=== PATIENT | male | born 1955 | race Two or more races ===

== ENCOUNTER 2023-12-26 10:23 | Outpatient (AMB) | payer MEDICAID, SELFPAY ==
--- NOTE | 2023-12-26 10:26 | A.OFFVIS_ITS ---
Intake Vital Signs 12/26/23 10:45 Height 5 ft 7 in Weight 268 lb 8 oz BMI 42.0 BP 120/80 Blood Pressure Location Rt brachial Position Sitting Pulse 82 Pulse Source Pulse Oximeter Pulse Oximetry (%) 97 Oxygen Delivery Method Room Air Intake Visit Reasons: ENP-hx of MAICOL using CPAP having issues - CONF Intake Note: Patient presents for MAICOL. Needs new CPAP prescription. Already has CPAP machine but doesn't know the company name. Allergies No Known Allergies Allergy (Verified 12/26/23 10:34) HPI HPI Comments History of Present Illness Details 68 y/o male patient presents for new in- person visit to manage sleep apnea. certified court/medical interpreter ID# [id number] utilized. Pt reports he was diagnosed with MAICOL about 14-15 years ago, and has been using CPAP since then. He still use his original CPAP and the CPAP does not work well. He sleeps better and has less snoring with using CPAP, and daytime sleepiness has also improved. He had gastric bypass in 2012, initially lost about 100 lb, but he gained back again. Sleep questionnaire: Have you ever been diagnosed with a sleep disorder? Yes, MAICOL about 15 years ago. Have you ever had a sleep study in the past? Yes. Have you ever been treated for a sleep disorder? Yes, with CPAP. Do you take medications for a sleep disorder? Ambien 10 mg. Do you snore? Yes. Do you wake up gasping at night? No, without CPAP. Do you have episodes of apneas? Yes. If yes, are they witnessed? Yes. Do you have episodes of nocturnal chest pain or dyspnea? No. Do you have difficulty initiating sleep? Yes. Do you have difficulty maintaining sleep? Yes. Do you wake up tired? Yes. Do you have headaches upon awakening? No. Do you wake up with dry mouth or throat? No. Do you have GERD? Yes. Do you have nocturia? No. Do you have nocturnal leg cramps? No. Do you have symptoms of restless legs? No. Do you act out your dreams? No. Sleep hygiene questionnaire: What is your usual sleep routine? Usual bedtime is at 10-11 pm; Usual wake up time is at 6 am. Do you take naps? Yes, sometimes. Is your sleep environment cool, dark, and quiet? Yes. Do you exercise? Yes, walking sometimes. Do you take caffeine or other stimulants? Coffee in the morning. Do you use electronics in bed? Yes. 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 Hypersomnolence questionnaire: Do you have daytime tiredness or fatigue? No. Do you easily fall asleep when inactive? No. Have you ever had episodes of sudden weakness? No. Have you ever had episodes of sudden weakness associated with strong emotions? No. PFSH Surgical History (Updated 12/26/23 @ 10:42 by Lynette Flores CMA) History of gastric bypass Family History (Updated 12/26/23 @ 10:43 by Lynette Flores CMA) Mother Cancer Brother Prostate cancer Social History (Updated 12/26/23 @ 10:45 by Lynette Flores CMA) Household Members: Children Housing: Apartment Alcohol intake: current Comment: Occasionally Patient Tobacco Use Status: Never used Tobacco Review of Systems Const All systems reviewed & are unremarkable except as noted in HPI and below Physical Exam Vital Signs: Last Vital Signs Pulse 82 12/26/23 10:45 BP 120/80 12/26/23 10:45 Pulse Ox 97 12/26/23 10:45 Oxygen Delivery Method Room Air 12/26/23 10:45 BMI result Body Mass Index 42.0 Const General: cooperative Nutritional Appearance: obese Orientation/consciousness: patient oriented x3 Neck Neck: Yes full ROM and Yes supple Resp Effort & Inspection: normal respiratory effort and able to speak in complete sentences Neuro General: patient oriented x3 and gait normal Cranial nerves: Yes CN's II-XII intact bilaterally Cognition (Neuro): normal cognition Motor exam (neuro): 5/5 motor strength present throughout Psych Appearance: grossly normal Mental Status: mental status grossly normal Speech and movement: Normal speech and movement present Affect: normal affect Attitude: cooperative Assessment & Plan Assessment & Plan (1) MAICOL on CPAP: Code(s): G47.33 - Obstructive sleep apnea (adult) (pediatric) (2) Obesity, Class III, BMI 40-49.9 (morbid obesity): Code(s): E66.01 - Morbid (severe) obesity due to excess calories Plan Pt is advised to undergo in lab sleep study to assess for sleep apnea. Will f/u with pt after study to discuss results and appropriate treatment options. Pt to call with any worsening concerns or questions. Orders: Orders RT PSG in-lab sleep study 12/26/23 E66.01 - Morbid (severe) obesity due to excess calories, G47.33 - Obstructive sleep apnea (adult) (pediatric), R40.0 - Somnolence Coding Level of Care Code New Pt Level 3 (26097) Diagnoses MAICOL on CPAP G47.33 Obesity, Class III, BMI 40-49.9 (morbid obesity) E66.01
[2023-12-26 10:45] VITALS: BP 120/80; PULSE 82; O2SAT 97; BMI 42.0
== END 2023-12-26 11:22 | disposition home or self-care (01) ==
PROVIDERS: PCP Nurse Practitioner; Visit Provider Nurse Practitioner Family
DX: G47.33 Obstructive sleep apnea (adult) (pediatric) (principal); E66.01 Morbid (severe) obesity due to excess calories
CPT/HCPCS: 99203

== ENCOUNTER → 2023-12-26 10:23 | Outpatient (BNVA) | payer MEDICARE, MEDICAID, SELFPAY | PROVIDERS: PCP Nurse Practitioner; Visit Provider Nurse Practitioner Family | DX: G47.33 Obstructive sleep apnea (adult) (pediatric) (principal); E66.01 Morbid (severe) obesity due to excess calories; Z68.41 Body mass index [BMI] 40.0-44.9, adult | CPT/HCPCS: 99212 ==

== ENCOUNTER → 2024-02-15 20:30 | Outpatient (REF) | payer MEDICARE, MEDICAID, SELFPAY | LOC: HO.SL 20:30 | PROVIDERS: PCP Nurse Practitioner; Visit Provider Nurse Practitioner Family | DX: G47.33 Obstructive sleep apnea (adult) (pediatric) (principal); R40.0 Somnolence; E66.01 Morbid (severe) obesity due to excess calories | CPT/HCPCS: 95810 ==

== ENCOUNTER → 2024-02-15 22:05 | Outpatient (BNV) | payer MEDICARE, MEDICAID, SELFPAY | PROVIDERS: PCP Nurse Practitioner; Visit Provider Psychiatry & Neurology Neurology | DX: G47.33 Obstructive sleep apnea (adult) (pediatric) (principal) | CPT/HCPCS: 95810 ==

== ENCOUNTER 2024-08-30 09:51 | Outpatient (REF) | payer MEDICARE, MEDICAID, SELFPAY ==
[2024-08-30 11:20] LABS: Hematocrit 44.6 % (42.0-52.0); Hemoglobin 15.1 g/dl (14.0-18.0); Mean Corpuscular HGB Conc 33.9 g/dl (31.0-36.0); Mean Corpuscular Hemoglobin 31.1 pg (27.0-33.0); Platelet Count 129 X10*3/uL (160-400); Red Blood Count 4.85 X10*6/uL (4.60-5.80); Red Cell Distribution Width 12.2 % (11.0-16.0); White Blood Count 3.2 X10*3/uL (4.8-10.8)
[2024-08-30 11:40] LABS: Alanine Aminotransferase 14 U/L (0-40); Albumin Level 3.9 g/dL (3.5-5.0); Alkaline Phosphatase 65 U/L (39-117); Anion Gap 9 (12-20); Aspartate Amino Transferase 23 U/L (5-37); Bilirubin Total 0.9 mg/dL (0.0-1.0); Blood Urea Nitrogen 9 mg/dL (9-16); Calcium 8.4 mg/dL (8.4-10.2); Carbon Dioxide 26 mmol/L (22-29); Chloride 107 mmol/L (96-108); Cholesterol 160 mg/dL (<200); Estimated Glomerular Filt Rate > 60; Glucose Random 111 mg/dL (60-115); HDL Cholesterol 36 mg/dL (>40); LDL Cholesterol Calculated 103 mg/dL (<100); Potassium 4.2 mmol/L (3.3-5.1); Sodium 138 mmol/L (135-145); Total Protein 6.5 g/dL (6.5-8.0); Triglycerides 109 mg/dL (<150)
[2024-08-30 11:46] LABS: HBc Num1 0.39 S/CO (0.00-0.79); HBsAGNum1 0.39 S/CO (0.00-0.99); HIV AB/AG Nonreactive (Nonreactive); HIV Num 1 0.07 S/CO (0.00-0.99); Hepatitis B Core Antibody Nonreactive (Nonreactive); Hepatitis B Surface Antigen Negative (Negative); ~Hepatitis C Antibody Nonreactive (Nonreactive)
[2024-08-30 11:52] LABS: Syphilis Screen Nonreactive (Nonreactive)
[2024-08-30 11:59] LABS: TSH reflex Free T4 1.28 uIU/mL (0.32-4.0); Vitamin D 25-OH Total 37.2 ng/mL (>30)
[2024-08-30 12:04] LABS: Folate 12.8 ng/mL (> or = 4.0); Prostate Specific Antigen 3.21 ng/mL (<0.05-4.0); Vitamin B12 451 pg/mL (200-900)
[2024-08-30 12:15] LABS: Creatinine Urine 193.35 mg/dL; Microalbum/Creatinine Ratio Ur 5.1 ug/mg cr (<30)
[2024-08-30 12:55] LABS: HBS Num2 8.74 mIU/mL (0-7.99); HBS Num3 8.28 mIU/mL (0-7.99); ~Hepatitis B Surface Antibody GRAYZONE (Nonreactive)
[2024-08-30 14:14] LABS: Estimated Average Glucose 120 mg/dL; Hemoglobin A1C 142.9485 umol/L; Hemoglobin A1c % 5.8 % (<6.0); Total Hemoglobin (HGBA1C) 3558.9996 umol/L
[2024-08-30 18:46] LABS: CT PCR NOT DETECTED (Not Detect.); NG PCR NOT DETECTED (Not Detect.)
== END 2024-08-30 09:52 | disposition home or self-care (01) ==
LOC: HO.HHCL 09:51
PROVIDERS: Visit Provider Student in an Organized Health Care Education/Training Program
DX: Z00.00 Encounter for general adult medical examination without abnormal findings (principal); Z11.59 Encounter for screening for other viral diseases; Z11.3 Encounter for screening for infections with a predominantly sexual mode of transmission; Z68.41 Body mass index [BMI] 40.0-44.9, adult; Z12.5 Encounter for screening for malignant neoplasm of prostate; Z13.1 Encounter for screening for diabetes mellitus
CPT/HCPCS: 80053; 80061; 82043; 82306; 82570; 82607; 82746; 83036; 84153; 84443; 85027; 86704; 86706; 86780; 86803; 87340; 87389; 87491; 87591

== ENCOUNTER 2024-11-13 09:41 | Outpatient (REF) | payer MEDICARE, MEDICAID, SELFPAY ==
--- OUTSIDE RECORDS SUMMARY | 2024-11-13 10:18 | XMS_ITS | Encounter Summary ---
Author Organization [facility] Address [address] [place] [address] [address] [place] [address] Care Team Providers Care Concrete Conveyor Operator Name Role Phone Lin Lopez MD Primary Care Pro vider Reason for Visit * Reason Onset Date Comments Med Change Request Prior Authorization 09/28/2024 Zepbound Encounter Details Date Type Department Care Team (Late st Contact Info) Description 09/28/2024 Refill [facility] [address] [place] [address] Germania Singh, ANP [address] [place] [address] Morbid obesity (CMS/HCC) Social History Tobacco Use Types Packs/Day Years Used Date Smoking Tobacco: Never Smokeless Tobacco: Never Alcohol Use Standard Drinks/Week Comments Yes 0 (1 standard drink = 0.6 oz pur e alcohol) social Alcohol Answer Date Recorded Frequency of Alcohol Consumption Not on file 08/28/2024 Average Number of Drinks Not on file 024 Frequency of Binge Drinking Not on file 08/17 Score 0 08/28/2024 Depression Answer Date Recorded Patient Health Questionnaire-9 Score 0 08/28/2024 Patient Health Questionnaire-9 Score 0 08/28/2024 Last PHQ-9: Questionnaire Data Not on file 1 10/28/2023 Housing Stability Answer Date Recorded What is your housing situation today? I have blade cronin 08/28/[address] you li ve. Do you have problems with any of the following? None of the above 08/28/2024 Food Insecurity Answer Date Recorded Within the past 12 months, y ou worried that your food would run out before you got money to buy more: Never True 08/28/2024 Within the past 12 months,th e food you bought just didn't last and you didn't have enough money to get more: Never True 09/2024 Transportation Answer Date Recorded In the past 12 months, has l ack of transportation kept you from medical appts, meetings, work or from getting things needed for daily living? No 08/28/2024 Utilities Answer Date Recorded In the past 12 months, has t he electric, gas, oil or water company threatened to shut off services in your home? No 08/28/2024 Depression Answer Date Recorded Patient Health Questionnaire-2 Score 0 08/28/2024 Internet Access Answer Date Recorded Internet Access Q1 Yes 08/28/2024 Internet Access Q2 Not on file 08/28/2024 Sex and Gender Information Value Date Recorded Sex Assigned at Male 08/16/2022 10:18 AM EDT Legal Sex Male 10:18 AM EDT Gender Identity Male 08/16/2022 10:18 AM EDT Sexual Orientation Straight 08/16/2022 10 :18 AM EDT documented as of this encounter Miscellaneous Notes * Telephone Encounter - Andie Sky - 10/11/2024 11:02 AM EST PA generated in [facility]. Pending decision. documented in this encounter Plan of Treatment Not on file documented as of this encounter Visit Diagnoses Diagnosis Morbid obesity (CMS/HCC) Morbid obesity documented in this encounter Additional Health Concerns Assessment Noted Time PHQ-9 Depression Total Score: 0 08/28/20 10:40 AM EST documented as of this encounter Care Teams Concrete Conveyor Operator Relationship Specialty Start Date End Date Lin Lopez MD [address] [place] [id number] PCP - General Internal Medicine 11/01/23 documented as of this encounter
--- OUTSIDE RECORDS SUMMARY | 2024-11-13 10:18 | XMS_ITS | Clinical Summary ---
Author Organization [employer] Address [address] [place] [address] Care Team Providers Care Rolloff Driver Name Role Phone Lin Lopez MD Primary Care Pro vider Allergies Active Allergy Reactions Criticality Noted Date Comments Xavier Inhibitors Cough Medications omeprazole OTC (PriLOSEC OTC) 20 MG EC tablet take 1 Tablet by Oral route every day before breakfast 90 tablet 3 Active Melatonin 10 MG capsule Take by mouth. Activ e calcium carbonate (Os-Bin) 1250 (500 Ca) MG tablet Active multivitamin with minerals (Centrum) 9-200 mg-mcg tablet split tablet Take 1 tablet by mouth. 3 Active docusate sodium (Colace) 100 MG capsule Take 1 tab po bid prn constipation 60 capsule 3 4 Active psyllium (Metamucil Smooth Texture) 58.6 % powder Take 5.12 g (3 g of fiber) by mouth 2 times daily. 283 g 2 4 025 Active amLODIPine (Norvasc) 10 MG tabletIndication s:Essential hypertension TAKE 1 TABLET BY MOUTH EVERY MORNING 90 tablet 4 Active zolpidem (Ambien) 10 MG tabletIndication s:Other insomnia TAKE 1 TABLET BY MOUTH AT BEDTIME IF NEEDED FOR SLEEP 28 tablet 2 4 Active Multiple Vitamin (multivitamin) tablet Take 1 tablet by mouth Once per day. 90 tablet 2 4 Active losartan (Cozaar) 100 MG tablet TAKE 1 TABLET BY MOUTH EVERY MORNING 90 tablet 4 Active simvastatin (Zocor) 20 MG tablet TAKE 1 TABLET BY MOUTH AT BEDTIME 90 tablet 4 Active Tirzepatide-Weig ht Management (Zepbound) 2.5 MG/0.5ML solution auto-injectorInd ications:Morbid obesity ([facility]) Inject 0.5 mL (2.5 mg) under the skin every 7 (seven) days. 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 2023 Essential hypertension 08/06/2015 3 Insomnia 08/06/2015 08/26/2023 Assessment & Plan (09/03/2023 8:29 PM EST): Pt w chronic insomnia -refilled today zolpidem -advised pt to discuss w new provider at next apt for TC about options as trazodone ,will hold on changes for now given unsure when next apt will be Mixed hyperlipidemia 08/06/2015 08/26/2023 Obstructive sleep apnea syndrome 08/06/2015 09/03/2023 Assessment & Plan (09/07/2023 10:13 AM EST): Pt w hx of MAICOL -requesting today to JAGDISH report of last polysomnography -referred to sleep med -pt is benefiting from his CPAP machine with improvement of MAICOL symptoms Encounters Date Type Department Care Team Description 09/28/2024 Refill [facility] [address] [place] [address] Germania Singh ANP Morbid obesity ([facility]) 08/30/2024 Refill [facility] [address] [place] [phone] Lin Lopez MD Morbid obesity ([facility]) (Primary Dx) 08/30/2024 Orders Only [facility] [address] [place] [phone] Lin Lopez MD Thrombocytopenia ([facility]) (Primary Dx) 08/28/2024 10:15 AM EST Office Visit [facility] [address] [place] [address] Lin Lopez MD Family history of cancer (Primary Dx); Dietary counseling; Exercise counseling; Morbid obesity (CMS/HCC); Colon cancer screening; Hypertension, unspecified type; Annual physical exam; Encounter for screening for infections with a predominantly sexual mode of transmission; Encounter for screening for other viral diseases; Body mass index (BMI) 40.0-44.9, adult (CMS/HCC); Essential hypertension; Other insomnia; Encounter for immunization; Obstructive sleep apnea syndrome 08/28/2024 Travel 08/20/2024 Patient Outreach [facility] [address] [place] [address] Lin Lopez MD Pre-visit Planning (Pre-visit planning - LVM ) from Last 3 Months Immunizations Name Administration Dates Next Due Hep A, ped/adol, 2 dose 01/28/2012,05/27/2011 Hep B, Adolescent or Pediatric 01/28/2012,2010,05/27/2011 INFLUENZA INJECTABLE QUADRIV ALANT CCIIV4 MDCK Multi-dose vial 09/28/2019 Influenza High-dose Quadriva lent Preservative Free 08/24/2023,07/20/2021,08/14/2020 Influenza injectable quadriv alent IIV4 with preservative 08/26/2016,08/06/2015 Influenza injectable quadriv alent preservative free 08/18/2017 Influenza, IIV3, injectable 06/26/2014, 1,06/15/2010 Influenza, Split (incl. susie fied surface antigen) 07/16/2013,06/30/2012 Influenza, seasonal, injecta ble, preservative free 08/28/2024 Pfizer Covid-19 Vaccine 12+ 08/28/2024, Pneumococcal Conjugate PCV 13 12/09/2021 Pneumococcal Conjugate PCV 20 08/28/2024 Tdap 08/28/2024,06/30/2012,10/17/2003 Zoster, live 04/28/2015 Family History Medical History Relation Name Comments DM2 Brother Leukemia Brother prostate cancer in two brothers Brother Prostate cancer Father's Brother breast ca at 70s Mother 2nd sister w breast ca Sister breast ca at her 40s Sister Relation Name Status Comments Brother Father's Brother Mother Sister Social History Tobacco Use Types Packs/Day Years [...] Orientation Straight 08/16/2022 10 :18 AM EDT Last Filed Vital Signs Vital Sign Reading Time Taken Comments Blood Pressure 121/73 08/28/2024 10:39 AM EST Pulse 86 08/28/2024 10:39 AM EST Temperature 36.2 ??C (97.1 ??F) 08/28/2024 10:[address] Respiratory Rate 14 08/28/2024 10:39 AM EST Oxygen Saturation 95% 08/28/2024 10:39 AM EST Inhaled Oxygen Concentration - - Weight 123 kg (271 lb) 08/28/2024 10:39 AM EST Height 171.9 cm (5' 7.66 ) 08/28/2024 10:[address] Body Mass Index 41.62 08/28/2024 10:39 AM EST Plan of Treatment Health Maintenance Due Date Last Done Comments CT Colonography 1955 Colonoscopy 1955 Colorectal Cancer Screening 1955 Dental Oral Exam 1955 Dental Prophylaxis 1955 Dental X-Ray: Bitewings 1955 Dental X-Ray: Full Mouth 1955 FIT DNA/Cologuard 1955 FIT 1955 FOBT 1955 Sigmoidoscopy 1955 RSV Patients and Patients Aged 60 years or older (1 - Risk 60-74 years 1-dose series) 2015 Zoster Vaccines (2 of 3) 06/23/2015 04/28/2015 Alcohol/Substance Use Screening 08/28/2025 08/28/2024 Depression Screening 08/28/2025 08/28/2024, 08/28/20 24 SDOH Screening 08/28/2025 08/28/2024 Tobacco Screening 08/28/2025 08/28/2024 Diabetes: Hemoglobin A1C 08/30/2025 08/30/2024, 0611/2020 Lipid Panel 08/30/2029 08/30/2024, 0201/2022, 04/07/2021 DTaP/Tdap/Td Vaccines (4 - Td or Tdap) 08/28/2034 08/28/2024, 06/30/2012, 10/17/2003 Hepatitis A Vaccines Aged Out 01/28/2012, 05/27/20 11 No longer eligible based on patient's age to complete this topic Hepatitis B Vaccines Aged Out 01/28/2012, 07/02/2011, 05/27/2011 No longer eligible based on patient's age to complete this topic COVID-19 Vaccine Completed 08/28/2024, 08/24/2023 Influenza Vaccine Completed 08/28/2024, , 07/20/2021, Additional history exists Pneumococcal Vaccine: 65+ Years Completed 08/28/2024, 12/09/2021 Hepatitis C Screening Completed 08/30/2024, 022 HIB Vaccines Aged Out No longer eligi ble based on patient's age to complete this topic HPV Vaccines Aged Out No longer eligi ble based on patient's age to complete this topic IPV Vaccines Aged Out No longer eligi ble based on patient's age to complete this topic Meningococcal Vaccine Aged Out No paulo lorne eligible based on patient's age to complete this topic RSV under 20 months Aged Out No longe r eligible based on patient's age to complete this topic Rotavirus Vaccines Aged Out No longer eligible based on patient's age to complete this topic Procedures Procedure Name Priority Date/Time Associated Diagnosis Comments VITAMIN B12/FOLATE, SERUM PANEL Routine 08/30/2024 10:00 AM EST Annual physical exam PSA, TOTAL Routine 08/30/2024 10:00 AM EST Annual physical exam VITAMIN D,25-OH,TOTAL,IA Routine 08/30/2024 10:00 AM EST Annual physical exam Body mass index (BMI) 40.0-44.9, adult ([facility]) TSH W/REFLEX TO FT4 Routine 08/30/2024 1 0:00 AM EST Annual physical exam SYPHILIS SCREEN Routine 08/30/2024 10:00 AM EST Annual physical exam LIPID PANEL, STANDARD Routine 08/30/2024 10:00 AM EST Annual physical exam HIV 1/2 ANTIGEN/ANTIBODY, FOURTH GENERATION W/RFL Routine 08/30/2024 10:00 AM EST Annual physical exam HEPATITIS C AB W/REFL TO HCV RNA, QN, PCR Routine 08/30/2024 10:00 AM EST Annual physical exam HEPATITIS B SURFACE ANTIGEN, EIA Routine 08/30/2024 10:00 AM EST Annual physical exam Encounter for screening for other viral diseases HEPATITIS B SURFACE ANTIBODY, QUALITATIVE Routine 08/30/2024 10:00 AM EST Annual physical exam Encounter for screening for other viral diseases HEPATITIS B CORE AB TOTAL Routine 08/30/2024 10:00 AM EST Annual physical exam Encounter for screening for other viral diseases HEMOGLOBIN A1C Routine 08/30/2024 10:00 AM EST Annual physical exam COMPREHENSIVE METABOLIC PANEL Routine 08/30/2024 10:00 AM EST Annual physical exam CBC Routine 08/30/2024 10:00 AM EST Annual physical exam ALBUMIN, RANDOM URINE W/CREATININE Routine 08/30/2024 10:00 AM EST Annual physical exam CHLAMYDIA/N. GONORRHOEAE RNA, TMA, UROGENITAL Routine 08/30/2024 10:00 AM EST Annual physical exam Encounter for screening for infections with a predominantly sexual mode of transmission ECG 12-LEAD Routine 08/28/2024 8:45 PM EST Hypertension, unspecified type from Last 3 Months Results * Syphilis Screen (08/30/2024 10:00 AM EST) Syphilis Screen Nonreactive Nonreactive [facility] Blood 08/30/2024 10:0 0 AM EST 08/30/2024 10:53 AM EST us Lin Gore MD LAB BLOOD ORDERAB LES Final Result [facility] [address] [place] [phone] * Vitamin D, 25-Hydroxy, Total, Immunoassay (08/30/2024 10:00 AM EST) Vitamin D 25-OH Total 37.2 >30 ng/mL [facility] Comment:Health Based Referen ce Values*< 20 ng/mL Nhzwrridy80-23 ng/mL Insufficient> 30 ng/mL Sufficient*Marjorie CHRISTOPHER. N Engl J Med. 2007;357:266-280Care must be taken in interpreting Vitamin D results fromdifferent laboratories and methodologies. Published datademonstrated that results from patients undergoinghemodialysis may show a negative bias when tested withvarious automated 25-OH vitamin D assays when compared toLC-MS/MS.When testing samples from patients whose predominant form ofVitamin D is Vitamin D2, such as patients receiving VitaminD2 supplementation, results that are subtherapeutic shouldbe confirmed with another method such as LC-MS/MS. Blood Venous blood specimen / Unknown 08/30/2024 10:00 AM EST 08/30/2024 10:53 AM EST Lin Gore MD LAB BLOOD ORDERAB LES Final Result [facility] [address] [place] [address] [phone] * Vitamin B12 (Cobalamin) and Folate Panel, Serum (08/30/2024 10:00 AM EST) Vitamin B12 451 200 - 900 pg/mL [facility] Comment:NORMAL 200-900 PG/ML INDETERMINATE 160-199 PG/ML DEFICIENT < 160 PG/ML Folate 12.8 > or = 4.0 ng/mL [facility] Comment:Reference Values:> o r = 4.0 ng/mL< 4.0 ng/mL suggests folate deficiency Methotrexate, aminopterin and folinic acid(leucovorin) are chemotherapeutic agents whose molecularstructures are similar to folate; therefore, the Architectfolate assay cannot be used for patients using these drugs. Blood 08/30/2024 10:0 0 AM EST 08/30/2024 10:53 AM EST us Lin Gore MD LAB BLOOD ORDERAB LES Final Result Performing Organization Address [facility]/ZIP Co de Phone Number [facility] [address] [place] [phone] * TSH with Reflex to Free T4 (08/30/2024 10:00 AM EST) TSH reflex Free T4 1.28 0.32 - 4.0 uIU/mL [facility] Blood 08/30/2024 10:0 0 AM EST 08/30/2024 10:53 AM EST us Lin Gore MD LAB BLOOD ORDERAB LES Final Result Performing Organization Address [facility] Phone Number [facility] [address] [place] [phone] * Albumin, Random Urine W/Creatinine (08/30/2024 10:00 AM EST) Creatinine, Urine 193.35 mg/dL [facility] Microalbumin Urine 10.0 mg/L [facility] Microalbum Creatinine Ratio Ur 5.1 <30 ug/mg cr [facility] Comment:Albumin/Creatinine R atio Reference Ranges: Normal: < 30 ug/mg creatinine Microalbuminuria: 30 - 300 ug/mg creatinineClinical Albuminuria: > 300 ug/mg creatinine Urine (Urine, Random) 08/30/2024 10:00 AM EST 08/30/2024 11:28 AM EST us Lin Gore MD LAB URINE ORDERAB LES Final Result Performing Organization Address [facility] Co de Phone Number [facility] [address] [place] [phone] * Hepatitis C Antibody with Reflex to HCV, RNA, Quantitative, Real-Time PCR (08/30/2024 10:00 AM EST) Hepatitis C Antibody Nonreactive Nonreactive [facility] Comment:Antibodies to HCV no t detected; does not exclude early acuteHCV infection. Blood Venous blood specimen / Unknown 08/30/2024 10:00 AM EST 08/30/2024 10:53 AM EST Lin Gore MD LAB BLOOD ORDERAB LES Final Result [facility] [address] [place] [phone] * Chlamydia/N. Gonorrhoeae RNA, TMA, Urogenitial (08/30/2024 10:00 AM EST) CT PCR NOT DETECTED Not Detect. [facility] Comment:A not detected test result does not exclude the possibilityof infection because test results can be affected byimproper specimen collection, concurrent antibiotic therapy,or the number of organisms in the specimen which may bebelow the sensitivity of the test. As with many diagnostictests, results from the Xpert CT/NG assay should beinterpreted in conjunction with other laboratory andclinical data available to the clinician.Xpert CT/NG performance has not been evaluated in patientsless than 14 years of age. The assay should not be used forthe evaluationof suspected sexual abuse or for other medico-legalindications. Additional testing is recommended in anycircumstance when false positive or false negative resultscould lead to adverse medical, social or psychologicalconsequences. NG PCR NOT DETECTED Not Detect. [facility] Comment:A not detected test result does not exclude the possibilityof infection because test results can be affected byimproper specimen collection, concurrent antibiotic therapy,or the number of organisms in the specimen which may bebelow the sensitivity of the test. As with many diagnostictests, results from the Xpert CT/NG assay should beinterpreted in conjunction with other laboratory andclinical data available to the clinician.Xpert CT/NG performance has not been evaluated in patientsless than 14 years of age. The assay should not be used forthe evaluationof suspected sexual abuse or for other medico-legalindications. Additional testing is recommended in anycircumstance when false positive or false negative resultscould lead to adverse medical, social or psychologicalconsequences. Urine Urethral structure / Unknown 08/30/2024 10:00 AM EST 08/30/2024 11:28 AM EST Narrative [facility] - 08/30/2024 6:46 PM EST Urine us Lin Gore MD LAB MICROBIOLOGY - GENERAL ORDERABLES Final Result Performing Organization Address City/[facility]/ZIP Co de Phone Number [facility] [address] [place] [phone] * Hepatitis B surface antigen, EIA (08/30/2024 10:00 AM EST) Hepatitis B Surface Ag Negative Negative [facility] Blood Venous blood specimen / Unknown 08/30/2024 10:00 AM EST 08/30/2024 10:53 AM EST us Lin Gore MD LAB BLOOD ORDERAB LES Final Result Performing Organization Address [facility] Co de Phone Number [facility] [address] [place] [address] [phone] * Hepatitis B Core Antibody, Total (08/30/2024 10:00 AM EST) Hepatitis B Core Antibody Nonreactive Nonreactive [facility] Blood Venous blood specimen / Unknown 08/30/2024 10:00 AM EST 08/30/2024 10:53 AM EST us Lin Gore MD LAB BLOOD ORDERAB LES Final Result Performing Organization Address [facility] Co de Phone Number [facility] [address] [place] [address] [phone] * HIV-1/2 Antigen and Antibodies, Fourth Generation, with Reflexes (08/30/2024 10:00 AM EST) HIV AB/AG Nonreactive Nonreactive [facility] Comment:HIV-1 p24 Ag and/or HIV-1/HIV-2 Ab not detected.A test result that is nonreactive does not exclude thepossibility of exposure to or infection with HIV-1 and/orHIV-2. Nonreactive results in this assay for individualswith prior exposure to HIV-1 and/or HIV-2 may be due toantigen and antibody levels that are below the limit ofdetection of this assay.The [employer] HIV Ag/Ab Combo assay result andsupplemental assay results should be interpreted inconjunction with the patient's clinical presentation,history and other laboratory results. If the results areinconsistent with clinical evidence, additional testing issuggested to confirm the result. Blood Venous blood specimen / Unknown 08/30/2024 10:00 AM EST 08/30/2024 10:53 AM EST us Lin Gore MD LAB BLOOD ORDERAB LES Final Result Performing Organization Address [facility] Co de Phone Number [facility] [address] [place] [address] [phone] * Hepatitis B Surface Antibody, Qualitative (08/30/2024 10:00 AM EST) Pathologist [facility] ~Hepatitis B Surface Antibody GRAYZONE Nonreactive [facility] Comment:GRAYZONE: 8.00 mIU/m L TO 11.99 mIU/mLTHE IMMUNE STATUS OF THE INDIVIDUAL SHOULD BE FURTHERASSESSED BY CONSIDERING OTHER FACTORS, SUCH CLINICALSTATUS, FOLLOW-UP TESTING, ASSOCIATED RISK FACTORS, AND THEUSE OF ADDITIONAL DIAGNOSTIC INFORMATION. Blood Venous blood specimen / Unknown 08/30/2024 10:00 AM EST 08/30/2024 10:53 AM EST Lin Gore MD LAB BLOOD ORDERAB LES Final Result Performing Organization Address [facility] Co de Phone Number [facility] [address] [place] [address] [phone] * (ABNORMAL) CBC (08/30/2024 10:00 AM EST) White Blood Count 3.2(L) 4.8 - 10.8 X10*3/uL [facility] Red Blood Count 4.85 4.60 - 5.80 X10*6/uL [facility] Hemoglobin 15.1 14.0 - 18.0 g/dl [facility] Hematocrit 44.6 42.0 - 52.0 % [facility] Mean Corpuscular Volume 92.0 80.0 - 98.0 fL [facility] Mean Corpuscular Hemoglobin 31.1 27.0 - 33.0 pg [facility] Mean Corpuscular HGB Conc 33.9 31.0 - 36.0 g/dl [facility] Red Cell Distribution Width 12.2 11.0 - 16.0 % [facility] Platelet Count 129(L) 160 - 400 X10*3/uL [facility] Mean Platelet Volume 12.0 9.4 - 12.4 fL [facility] NRBC Pct Auto 0.0 0.0 - 0.2 /100WBC [facility] NRBC Abs Auto 0.000 0.0 - 0.012 X10*3/uL [facility] Blood Venous blood specimen / Unknown 08/30/2024 10:00 AM EST 08/30/2024 10:53 AM EST us Lin Gore MD LAB BLOOD ORDERAB LES Final Result [facility] [address] [place] [address] [phone] * PSA,Total (08/30/2024 10:00 AM EST) Prostate Specific Antigen 3.21 <0.05 - 4.0 ng/mL [facility] Comment:PSA methodology: Abb rae Alihienty i ChemiluminescentMicroparticle Immunoassay (CMIA) Blood Venous blood specimen / Unknown 08/30/2024 10:00 AM EST 08/30/2024 10:53 AM EST us Lin Gore MD LAB BLOOD ORDERAB LES Final Result Performing Organization Address [facility]/ZIP Co de Phone Number [facility] [address] [place] [address] [phone] * Hemoglobin A1c (08/30/2024 10:00 AM EST) Hemoglobin A1c 5.8 <6.0 % [facility] Comment:Hemoglobin A1C Refer ence Range Adults: 4.8 - 6.0 % Non diabetic: < 6.0 % Goal: < 7.0 %Additional Action Suggested: > 8.0 %Note: Hemoglobin A1c results are invalid for patients with abnormal amounts of HbF. Blood transfusions may impact the HbA1c concentration in the patient sample. Estimated Average Glucose 120 mg/dL [facility] Comment:eAG = Estimated ave rage glucose which is %A1C expressed asaverage glucose, using the formula of the M9Y-EznfynzVnpdrsl Glucose study (ADAG), Diabetes Care, Vol.31,#8,May. 2007 Blood Venous blood specimen / Unknown 08/30/2024 10:00 AM EST 08/30/2024 10:53 AM EST us Lin Gore MD LAB BLOOD ORDERAB LES Final Result Performing Organization Address [facility] Co de Phone Number [facility] [address] [place] [address] [phone] * (ABNORMAL) Lipid Panel, Standard (08/30/2024 10:00 AM EST) Triglycerides 109 <150 mg/dL [facility] Comment:Desirable Triglyceri de: less than 150 mg/dLBorderline High Triglyceride 150-199 mg/dLHigh Triglyceride: 200-499 mg/dLVery High Triglyceride: greater than or equal to 5OO mg/dL Cholesterol 160 <200 mg/dL [facility] Comment:Desirable Cholestero l: less than 200 mg/dLBorderline High Cholesterol: 200-239 mg/dLHigh Cholesterol: greater than 239 mg/dL LDL Cholesterol Calculated 103(H) <100 mg/dL [facility] Comment:Desirable LDL: less than 100 mg/dLNear Optimal/Above Optimal LDL: 110- 129 mg/dLBorderline High LDL: 130-159 mg/dLHigh LDL: 160-189 mg/dLVery High LDL: greater than or equal to 190 mg/dL HDL Cholesterol 36(L) >40 mg/dL [facility] Comment:Desirable HDL: great er than 40 mg/dL Note: This HDL assay may give artificially low results in patients with liver disease. Blood Venous blood specimen / Unknown 08/30/2024 10:00 AM EST 08/30/2024 10:53 AM EST Lin Gore MD LAB BLOOD ORDERAB LES Final Result [facility] [address] [place] [phone] * (ABNORMAL) Comprehensive Metabolic Panel (08/30/2024 10:00 AM EST) Sodium 138 135 - 145 mmol/L [facility] Potassium 4.2 3.3 - 5.1 mmol/L [facility] Chloride 107 96 - 108 mmol/L [facility] Carbon Dioxide 26 22 - 29 mmol/L [facility] Anion Gap 9(L) 12 - 20 [facility] Urea Nitrogen (BUN) 9 9 - 16 mg/dL [facility] Creatinine, Serum 0.89 0.5 - 1.4 mg/dL [facility] Estimated Glomerular Filt Rate >60 [facility] Comment:Chronic Kidney Disea se: Estimated GFR < 60 mL/min/1.85o7Dpeewe Kidney Disease: Estimated GFR < 15 mL/min/1.73m2 Glucose 111 60 - 115 mg/dL [facility] Calcium 8.4 8.4 - 10.2 mg/dL [facility] Bilirubin, Total 0.9 0.0 - 1.0 mg/dL [facility] Aspartate Amino Transferase 23 5 - 37 U/L [facility] Alanine Aminotransferase 14 0 - 40 U/L [facility] Total Protein 6.5 6.5 - 8.0 g/dL [facility] Albumin Level 3.9 3.5 - 5.0 g/dL [facility] Alkaline Phosphatase 65 39 - 117 U/L [facility] Blood Venous blood specimen / Unknown 08/30/2024 10:00 AM EST 08/30/2024 10:53 AM EST us Lin Gore MD LAB BLOOD ORDERAB LES Final Result [facility] [address] [place] [phone] * ECG 12 lead (08/28/2024 8:45 PM EST) Narrative Lin Lopez MD - 08/28/2024 8:45 PM EST EKG today 08/2024 for baseline, NSR, TWI in lead III only , no ischemic changes us Lin Gore MD ECG ORDERABLES F inal Result from Last 3 Months Insurance MEDICARE [facility] ST[employer] ADULT Care Teams Rolloff Driver Relationship Specialty Start Date End Date Lin Lopez MD [address] [place] [phone] PCP - General Internal Medicine 11/01/23
--- OUTSIDE RECORDS SUMMARY | 2024-11-13 10:18 | XMS_ITS | Encounter Summary ---
Author Organization [employer] Address [address] [place] [address] [place] [address] Care Team Providers Care Beam Warper Name Role Phone Stacy Dugan Primary Care Provider [phone] Amy You NP Primary Care Provider [phone] Lin Lopez MD Primary Care Pro vider Reason for Visit * Reason Comments Med Refill Encounter Details Date Type Department Care Team (Late st Contact Info) Description 04/01/2023 Refill [facility] MEDICINE [address] [place] [address] Stacy Dugan FNP [address] [place] [address] Dept [place] [address] Other insomnia Social History Tobacco Use Types Packs/Day Years Used Date Smoking Tobacco: Never Assessed Sex and Gender Information Value Date Recorded Sex Assigned at Male 08/16/2022 10:18 AM EDT Legal Sex Male 10:18 AM EDT Gender Identity Male 08/16/2022 10:18 AM EDT Sexual Orientation Straight 08/16/2022 10 :18 AM EDT documented as of this encounter Miscellaneous Notes * Telephone Encounter - CLAU Conner - 04/06/2023 5:02 PM EDT Refill sent by PCP on 04/06/23 documented in this encounter Plan of Treatment Not on file documented as of this encounter Visit Diagnoses Diagnosis Other insomnia documented in this encounter Care Teams Beam Warper Relationship Specialty Start Date End Date Stacy Dugan FNP PCP - General Family Medicine 06/10/22 07/21/23 Amy You NP 230 [place] [address] PCP - General Family Medicine 07/22/23 10/31/23 Lin Lopez MD [address] [place] [address] PCP - General Internal Medicine 11/01/23 documented as of this encounter
--- OUTSIDE RECORDS SUMMARY | 2024-11-13 10:18 | XMS_ITS | Encounter Summary ---
Author Organization [employer] Address [address] [place] [address] Care Team Providers Care Director Of Investigations Name Role Phone Stacy Dugan Primary Care Provider [phone] Amy You NP Primary Care Provider [phone] Lin Lopez MD Primary Care Pro vider Encounter Details Date Type Department Care Team (Latest Contact Info) Description 06/08/2019 Abstract [facility] CONVERSION[facility] Dental, Provider, DDS Social History Tobacco Use Types Packs/Day Years Used Date Smoking Tobacco: Never Assessed Sex and Gender Information Value Date Recorded Sex Assigned at Male 08/16/2022 10:18 AM EDT Legal Sex Male 10:18 AM EDT Gender Identity Male 08/16/2022 10:18 AM EDT Sexual Orientation Straight 08/16/2022 10 :18 AM EDT documented as of this encounter Plan of Treatment Not on file documented as of this encounter Visit Diagnoses Not on filedocumented in this encounter Care Teams Director Of Investigations Relationship Specialty Start Date End Date Stacy Dugan FNP PCP - General Family Medicine 06/10/22 07/21/23 Amy You NP [address] [place] [address] PCP - General Family Medicine 07/22/23 10/31/23 Lin Lopez MD [address] [place] [phone] PCP - General Internal Medicine 11/01/23 documented as of this encounter
[2024-11-13 11:10] LABS: MANUAL DIFF FLAG NO
[2024-11-13 11:24] LABS: Basophils Percent Auto 0.5 % (0-2); Eosinophils Absolute Auto 0.1 X10*3/uL (0.0-0.4); Eosinophils Percent Auto 1.9 % (0-4); Hematocrit 44.8 % (42.0-52.0); Hemoglobin 15.3 g/dl (14.0-18.0); Imm Gran Abs Auto 0.01 X10*3/uL (0.00-0.03); Imm Gran Pct Auto 0.2 % (0.0-0.4); Lymphocytes Absolute Auto 1.9 X10*3/uL (1.2-4.9); Lymphocytes Percent Auto 32.1 % (20-40); Mean Corpuscular HGB Conc 34.2 g/dl (31.0-36.0); Mean Corpuscular Hemoglobin 31.5 pg (27.0-33.0); Mean Corpuscular Volume 92.4 fL (80.0-98.0); Mean Platelet Volume 12.4 fL (9.4-12.4); Monocytes Absolute Auto 0.5 X10*3/uL (0.1-1.2); Monocytes Percent Auto 7.9 % (2-11); Neutrophils Absolute Auto 3.3 x10*3/uL (2.0-8.3); Neutrophils Percent Auto 57.4 % (45-73); Platelet Count 150 X10*3/uL (160-400); Red Blood Count 4.85 X10*6/uL (4.60-5.80); Red Cell Distribution Width 12.1 % (11.0-16.0); White Blood Count 5.8 X10*3/uL (4.8-10.8)
[2024-11-13 11:42] LABS: Alanine Aminotransferase 15 U/L (0-40); Albumin Level 4.1 g/dL (3.5-5.0); Alkaline Phosphatase 61 U/L (39-117); Anion Gap 7 (12-20); Aspartate Amino Transferase 26 U/L (5-37); Bilirubin Total 0.9 mg/dL (0.0-1.0); Blood Urea Nitrogen 14 mg/dL (9-16); Calcium 8.7 mg/dL (8.4-10.2); Carbon Dioxide 28 mmol/L (22-29); Chloride 108 mmol/L (96-108); Estimated Glomerular Filt Rate > 60; Glucose Random 109 mg/dL (60-115); Potassium 3.9 mmol/L (3.3-5.1); Sodium 139 mmol/L (135-145)
== END 2024-11-13 09:42 | disposition home or self-care (01) ==
LOC: HO.HHCL 09:41
PROVIDERS: Visit Provider Student in an Organized Health Care Education/Training Program
DX: D69.6 Thrombocytopenia, unspecified (principal)
CPT/HCPCS: 36415; 80053; 85025

== ENCOUNTER 2025-09-06 09:36 | Outpatient (REF) | payer MEDICARE, MEDICAID, SELFPAY ==
--- OUTSIDE RECORDS SUMMARY | 2025-09-06 10:16 | XMS_ITS | Encounter Summary ---
Author Organization [employer] Address [address] [place] [address] 7 [place] [address] Care Team Providers Care Marine Animal Trainer Name Role Phone Lin Lopez MD Primary Care Pro vider Encounter Details Date Type Department Care Team (Late st Contact Info) Description 05/08/2025 Orders Only [facility] [address] [place] [address] [phone] Lin Lopez MD [address] [place] [address] Social History Tobacco Use Types Packs/Day Years [...] as of this encounter Plan of Treatment Upcoming Encounters Date Type Department Care Team (Late st Contact Info) Description 11/20/2025 9:00 AM EST Office Visit [facility] [address] [place] [address] Lin Lopez MD [address] [place] [phone] 12/12/2025 1:00 PM EST Office Visit [facility] [address] [place] [address] Anahi Yarbrough, OD 230 [place] [address] documented as of this encounter Visit Diagnoses Not on filedocumented in this encounter Additional Health Concerns Assessment Noted Time PHQ-9 Depression Total Score: 0 08/28/20 24 10:40 AM EST documented as of this encounter Care Teams Marine Animal Trainer Relationship Specialty Start Date End Date Lin Lopez MD [address] [place] [address] PCP - General Internal Medicine 11/01/23 documented as of this encounter
--- OUTSIDE RECORDS SUMMARY | 2025-09-06 10:16 | XMS_ITS | Encounter Summary ---
Author Organization [employer] Address [address] [place] [address] Care Team Providers Care Chemist Water Purification Name Role Phone Stacy Dugan Primary Care Provider Amy Oliva NP Primary Care Provider [phone] Lin Lopez MD Primary Care Pro vider Reason for Visit * Reason Comments Med Refill Encounter Details Date Type Department Care Team (Late st Contact Info) Description 04/01/2023 Refill [facility] MEDICINE 230 [place] [address] Stacy Dugan FNP Other insomnia Social History Tobacco Use Types [...] documented in this encounter Plan of Treatment Upcoming Encounters Date Type Department Care Team (Late st Contact Info) Description 11/20/2025 9:00 AM EST Office Visit [facility] 230 [place], [place] [phone] Lin Lopez MD 230 [place], [place] [phone] 12/12/2025 1:00 PM EST Office Visit [facility] [address] [place], [place] [phone] Anahi Yarbrough, OD 230 [place], [place] [phone] documented as of this encounter Visit Diagnoses Diagnosis Other insomnia documented in this encounter Care Teams Chemist Water Purification Relationship Specialty Start Date End Date Stacy Dugan FNP PCP - General Family Medicine 06/10/22 07/21/23 Amy You NP [address] [place] [address] [phone] PCP - General Family Medicine 07/22/23 10/31/23 Lin Lopez MD [address] [place] [address] [phone] PCP - General Internal Medicine 11/01/23 documented as of this encounter
--- OUTSIDE RECORDS SUMMARY | 2025-09-06 10:16 | XMS_ITS | Clinical Summary ---
Author Organization [employer] Address [address] [place] [address] 7 [place] [address] Care Team Providers Care Director Of Rehabilitation And Wellness Name Role Phone Lin Lopez MD Primary Care Pro vider Allergies Active Allergy Reactions Criticality Noted Date Comments Xavier Inhibitors Cough Medications omeprazole OTC (PriLOSEC OTC) 20 MG EC tablet take 1 Tablet by Oral route every day before breakfast 90 tablet 023 Active calcium carbonate (Os-Bin) 1250 (500 Ca) MG tablet Active zolpidem (Ambien) 10 MG tabletIndicatio ns:Other insomnia TAKE 1 TABLET BY MOUTH AT BEDTIME NEEDED FOR SLEEP 28 tablet 2 025 Active Melatonin 10 MG capsule Take 1 capsule (10 mg) by mouth Once per day. 30 capsule 5 025 Active Multiple Vitamin (Daily-Shailesh Multivitamin) tablet TOME 1 TABLETA POR VIA ORAL TODOS LOS [place] 90 tablet 2 025 Active simvastatin (Zocor) 20 MG tablet TAKE 1 TABLET BY MOUTH EVER DAY 90 tablet 025 Active amLODIPine (Norvasc) 10 MG tabletIndicatio ns:Essential hypertension TAKE 1 TABLET BY MOUTH EVERY MORNING 90 tablet 025 Active Tirzepatide-Jake ght Management (Zepbound) 2.5 MG/0.5ML solution auto-injectorIn dications:Morbi d obesity (CMS/HCC) (HCC) Inject 0.5 mL (2.5 mg) under the skin every 7 (seven) days. 2 mL 1 Active traZODone (Desyrel) 50 MG tablet Take 1 tablet (50 mg) by mouth at bedtime. 30 tablet 2 025 2024 Active psyllium (Metamucil Smooth Texture) 58.6 % powder Take 5.12 g (3 g of fiber) by mouth 2 times daily. 283 g 2 025 2025 Active docusate sodium (Colace) 100 MG capsule Take 1 tab po bid prn constipation 60 capsule 3 Active losartan (Cozaar) 100 MG tablet TAKE 1 TABLET BY MOUTH EVER MORNING 90 tablet Active multivitamin with minerals (Centrum) 9-200 mg-mcg tablet split tablet Take 1 tablet by mouth. 2024 Discontinued(O ther) docusate sodium (Colace) 100 MG capsule Take 1 tab po bid prn constipation 60 capsule 3 2024 Discontinued(R eorder (will not trigger notification to Pharmacy)) psyllium (Metamucil Smooth Texture) 58.6 % powder Take 5.12 g (3 g of fiber) by mouth 2 times daily. 283 g 2 2024 Discontinued(R eorder (will not trigger notification to Pharmacy)) Tirzepatide-Jake ght Management (Zepbound) 2.5 MG/0.5ML solution auto-injectorIn dications:Morbi d obesity (CMS/HCC) ([facility]) Inject 0.5 mL (2.5 mg) under the skin every 7 (seven) days. 2 mL 1 024 2024 Discontinued(R eorder (will not trigger notification to Pharmacy)) losartan (Cozaar) 100 MG tablet TOME ISIDRO TABLETA POR VIA ORAL CADA MANANA 90 tablet 2024 Discontinued Active Problems Problem Noted Date Diagnosed Date Thrombocytopenia 08/17/2025 Prediabetes 08/17/2025 Morbid obesity (CMS/HCC) 08/28/2024 Positive reaction to tuberculin skin test [...] w hx of MAICOL -requesting today to [place] report of last polysomnography -referred to sleep med -pt is benefiting from his CPAP machine with improvement of MAICOL symptoms Encounters Date Type Department Care Team Description 08/25/2025 Refill [facility] MEDICINE [address] [place] [phone] Lin Lopez MD 08/21/[address] [address] Lin Lopez MD Prior Authorization 08/17/2025 Orders Only [facility] MED[facility]INE [address] [place] [address] Lin Lopez MD 08/16/2025 2:00 PM EDT Office Visit [address] [address] Lin Lopez MD Colon cancer screening (Primary Dx); Dietary counseling; Exercise counseling; Morbid obesity (CMS/HCC) (HCC); Constipation, unspecified constipation type; Annual physical exam; Unspecified sexually transmitted disease; Body mass index (BMI) 39.0-39.9, adult; Encounter for immunization; Essential hypertension; Mixed hyperlipidemia; Other insomnia; Obstructive sleep apnea syndrome; Thrombocytopenia (CMS/HCC); Prediabetes 08/16/2025 Refill [facility] [address] [place] [address] Lin Lopez MD Morbid obesity (CMS/HCC) (HCC) 08/16/2025 Travel 08/15/2025 Telephone [facility] MED[facility]INE [address] [place] [phone] Carol Dewey [place] chart prep 07/24/2025 Telephone [facility] 230 [place] [address] Lin Lopez MD Appointment 07/21/2025 Refill [facility] [place] [address] Lin Lopez MD Essential hypertension 07/04/2025 Refill [facility] 230 [place] [address] Lin Lopez MD from Last 3 Months Immunizations Immunization Administration Dates Next Due Hep A, ped/adol, 2 dose 01/28/2012,05/27/2011 Hep B, Adolescent or Pediatric 01/28/2012,2010,05/27/2011 INFLUENZA INJECTABLE QUADRIV ALANT CCIIV4 MDCK Multi-dose vial 09/28/2019 Influenza High-dose Quadriva lent Preservative Free 08/24/2023,07/20/2021,08/14/2020 Influenza injectable quadriv alent IIV4 with preservative 08/26/2016,08/06/2015 Influenza injectable quadriv alent preservative free 08/18/2017 Influenza, High Dose Seasona l, Preservative Free 08/16/2025 Influenza, IIV3, injectable 06/26/2014, 1,06/15/2010 Influenza, Split (incl. susie fied surface antigen) 07/16/2013,06/30/2012 Influenza, seasonal, injecta ble, preservative free 08/28/2024 Pfizer Covid-19 Vaccine 12+ 08/16/2025,,08/24/2023 Pneumococcal Conjugate PCV 13 12/09/2021 Pneumococcal Conjugate [...] Date Recorded Patient Health Questionnaire-2 Score 0 08/16/2025 Internet Access Answer Date Recorded Internet Access [...] Sign Reading Time Taken Comments Blood Pressure 120/72 08/16/2025 1:49 PM EDT Pulse 96 08/16/2025 1:49 PM EDT Temperature 37.2 C (98.9 F) 08/16/2025 1:49 PM EDT Respiratory Rate 18 08/16/2025 1:49 PM EDT Oxygen Saturation 98% 08/16/2025 1:49 PM EDT Inhaled Oxygen Concentration - - Weight 115 kg (253 lb 3.2 oz) 08/16/2025 1:49 PM EDT Height 170.2 cm (5' 7 ) 08/16/2025 1:49 PM EDT Body Mass Index 39.66 08/16/2025 1:49 PM EDT Plan of Treatment Upcoming Encounters Date Type Department Care Team (Late st Contact Info) Description 11/20/2025 9:00 AM EST Office Visit [facility] MEDICINE 230 [place] [address] Lin Lopez MD 230 [place] [address] 12/12/2025 1:00 PM EST Office Visit [facility] [address] [place] [address] Zenon, Anahi, OD [address] [place] [address] Health Maintenance Due Date Last Done Comments CT Colonography 1955 Colonoscopy 1955 Colorectal Cancer Screening 1955 Dental Oral Exam 1955 Dental Prophylaxis 1955 Dental X-Ray: Bitewings 1955 Dental X-Ray: Full Mouth 1955 FIT DNA/Cologuard 1955 FIT 1955 FOBT 1955 Sigmoidoscopy 1955 Alcohol/Substance Use Screening 1967 SDOH Screening 08/28/2025 08/28/2024 Diabetes: Hemoglobin A1C 08/30/2025 08/30/2024, 03/18 Zoster Vaccines (3 of 3) 10/15/2025 08/20/2025, 04/16 COVID-19 Vaccine ( season) 2026 08/16/2025, 08/28/2024, 08/24/2023 Depression Screening 08/16/2026 08/16/2025, 08/28/20 24 Tobacco Screening 08/16/2026 08/16/2025 Lipid Panel 08/30/2029 08/30/2024, 11/18, 04/07/2021 RSV Patients and Patients Aged 60 years or older (1 - 1-dose 75+ series) 2030 DTaP/Tdap/Td Vaccines (4 - Td or Tdap) 08/28/2034 08/28/2024, 06/30/2012, 10/17/2003 Hepatitis A Vaccines Aged Out 01/28/2012, 05/27/20 11 No longer eligible based on patient's age to complete this topic Hepatitis B Vaccines Aged Out 01/28/2012, 07/02/2011, 05/27/2011 No longer eligible based on patient's age to complete this topic Pneumococcal Vaccine: 50+ Years Completed 08/28/2024, 12/09/2021 Hepatitis C Screening Completed 08/30/2024, 022 Influenza Vaccine Completed 08/16/2025, , 08/24/2023, Additional history exists HIB Vaccines Aged Out No longer eligi ble based on patient's age to complete this topic HPV Vaccines Aged Out No longer eligi ble based on patient's age to complete this topic IPV Vaccines Aged Out No longer eligi ble based on patient's age to complete this topic Meningococcal B Vaccine Aged Out No l onger eligible based on patient's age to complete [...] Procedure Name Priority Date/Time Associated Diagnosis Comments HEPATITIS C AB W/REFL TO HCV RNA, QN, PCR Routine 08/30/2024 10:00 AM EST Annual physical exam HEMOGLOBIN A1C Routine 08/30/2024 10:00 AM EST Annual physical exam LIPID PANEL, STANDARD Routine 08/30/2024 10:00 AM EST Annual physical exam from Last 3 Months or Most Recently Relevant to Health Maintenance Results * Hepatitis C Antibody with Reflex to HCV, RNA, Quantitative, Real-Time PCR (08/30/2024 10:00 AM EST) Hepatitis C Antibody Nonreactive Nonreactive [facility] Comment:Antibodies to HCV no t detected; does not exclude early acuteHCV infection. Blood Venous blood specimen / Unknown 08/30/2024 10:00 AM EST 08/30/2024 10:53 AM EST Lin Gore MD LAB BLOOD ORDERAB LES Final Result Performing Organization Address [facility]/ZIP Co de Phone Number [facility] [address] [place] [phone] * Hemoglobin A1c (08/30/2024 10:00 AM EST) Hemoglobin A1c 5.8 <6.0 % [facility] Comment:Hemoglobin A1C Refer ence Range Adults: 4.8 - 6.0 % Non diabetic: < 6.0 % Goal: < 7.0 %Additional Action Suggested: > 8.0 %Note: Hemoglobin A1c results are invalid for patients with abnormal amounts of HbF. Blood transfusions may impact the HbA1c concentration in the patient sample. Estimated Average Glucose 120 mg/dL [facility] Comment:eAG = Estimated ave rage glucose which is %A1C expressed asaverage glucose, using the formula of the [id number] Glucose study (ADAG), Diabetes Care, Vol.31,#8,Aug. 2007 Blood Venous blood specimen / Unknown 08/30/2024 10:00 AM EST 08/30/2024 10:53 AM EST Lin Gore MD LAB BLOOD ORDERAB LES Final Result Performing Organization Address [facility]/ZIP Co de Phone Number [facility] [address] [place] [phone] * (ABNORMAL) Lipid Panel, Standard (08/30/2024 10:00 AM EST) Triglycerides 109 <150 mg/dL [facility] Comment:Desirable Triglyceri de: less than 150 mg/dLBorderline High Triglyceride 150-199 mg/dLHigh Triglyceride: 200-499 mg/dLVery High Triglyceride: greater than or equal to 5OO mg/dL Cholesterol 160 <200 mg/dL [facility] Comment:Desirable Cholestero l: less than 200 mg/dLBorderline High Cholesterol: 200-239 mg/dLHigh Cholesterol: greater than 239 mg/dL LDL Cholesterol Calculated 103(H) <100 mg/dL [facility] Comment:Desirable LDL: less than 100 mg/dLNear Optimal/Above Optimal LDL: 110- 129 mg/dLBorderline High LDL: 130-159 mg/dLHigh LDL: 160-189 mg/dLVery High LDL: greater than or equal to 190 mg/dL HDL Cholesterol 36(L) >40 mg/dL [facility] Comment:Desirable HDL: great er than 40 mg/dL Note: This HDL assay may give artificially low results in patients with liver disease. Blood Venous blood specimen / Unknown 08/30/2024 10:00 AM EST 08/30/2024 10:53 AM EST us Lin Gore MD LAB BLOOD ORDERAB LES Final Result [facility] [address] [place] [address] [phone] from Last 3 Months or Most Recently Relevant to Health Maintenance Insurance MEDICARE [facility] STANDARD DENTAL-[facility] MEDICAID STAND ADULT Care Teams Director Of Rehabilitation And Wellness Relationship Specialty Start Date End Date Lin Lopez MD [address] [place] [address] [phone] PCP - General Internal Medicine 11/01/23
--- OUTSIDE RECORDS SUMMARY | 2025-09-06 10:16 | XMS_ITS | Encounter Summary ---
Author Organization [employer] Address [address] [place] [address] Care Team Providers Care Orthopedic Dentist Name Role Phone Lin Lopez MD Primary Care Pro vider Reason for Visit * Reason Onset Date Comments Med Refill 05/08/2025 Encounter Details Date Type Department Care Team ([facility] st Contact Info) Description 05/08/2025 Telephone [facility] MEDICINE [address] [place] [address] Lin Lopez MD [address] [place] [address] Med Refill Social History Tobacco Use Types Packs/Day Years [...] encounter Miscellaneous Notes * Telephone Encounter - Lyssa Pruitt LPN - 05/08/2025 11:35 AM EDT Please review request medication is not pended as it has not been prescribed in a while * Telephone Encounter - Hernán Uribe - 05/08/2025 11:32 AM EDT TC from pt requesting medication refill. Medications needing refill : Melatonin 10 MG capsule To be sent to: [facility]/pharmacy #[id number] documented in this encounter Plan of Treatment Upcoming Encounters Date Type Department Care Team (Late st Contact Info) Description 11/20/2025 9:00 AM EST Office Visit [facility] [address] [place] [address] [phone] Lin Lopez MD [address] [place] [address] 12/12/2025 1:00 PM EST Office Visit [facility] [address] [place], [place] [phone] Anahi Yarbrough, OD [address] [place], [place] [phone] documented as of this encounter Visit Diagnoses Not on filedocumented in this encounter Additional Health Concerns Assessment Noted Time PHQ-9 Depression Total Score: 0 08/28/20 10:40 AM EST documented as of this encounter Care Teams Orthopedic Dentist Relationship Specialty Start Date End Date Lin Lopez MD [address] [place], [place] [phone] PCP - General Internal Medicine 11/01/23 documented as of this encounter
--- OUTSIDE RECORDS SUMMARY | 2025-09-06 10:16 | XMS_ITS | Encounter Summary ---
Author Organization [employer] Address [address] [place] [address] [place] [address] Care Team Providers Care Information Security Analyst Name Role Phone Lin Lopez MD Primary Care Pro vider Reason for Visit * Reason Onset Date Comments Med Change Request Prior Authorization 09/28/2024 Zepbound Encounter Details Date Type Department Care Team (Late st Contact Info) Description 09/28/2024 Refill [facility] MEDICINE 230 [place] [address] Germania Singh, ANP [address] [place] [address] Morbid obesity (CMS/HCC) Social History Tobacco Use [...] 10/11/2024 11:02 AM EST PA generated in [facility]. Pending decision. documented in this encounter Plan of Treatment Upcoming Encounters Date Type Department Care Team (Late st Contact Info) Description 11/20/2025 9:00 AM EST Office Visit [facility] MED[facility]INE [address] [place] [address] Lin oLpez MD [address] [place] [address] 12/12/2025 1:00 PM EST Office Visit [facility] [address] [place] [phone] Anahi Yarbrough, OD 230 [place] [address] documented as of this encounter Visit Diagnoses Diagnosis Morbid obesity (CMS/HCC) (HCC) Morbid obesity documented in this encounter Additional Health Concerns Assessment Noted Time PHQ-9 Depression Total Score: 0 08/28/20 24 10:40 AM EST documented as of this encounter Care Teams Information Security Analyst Relationship Specialty Start Date End Date Lin Lopez MD [address] [place] [phone] PCP - General Internal Medicine 11/01/23 documented as of this encounter
--- OUTSIDE RECORDS SUMMARY | 2025-09-06 10:16 | XMS_ITS | Encounter Summary ---
Author Organization [employer] Address [address] [place] [address] Care Team Providers Care Personnel Records Clerk Name Role Phone Stacy Dugan STORE RECEIVER Primary Care Provider Amy Oliva CROSSCUTTER Primary Care Provider [phone] Lin Lopez MD Primary Care Pro vider Encounter Details Date Type Department Care Team (Latest Contact Info) Description 06/08/2019 Abstract [facility] CONVERSIONS Dental, Provider, DDS Social History [...] Description 11/20/2025 9:00 AM EST Office Visit [facility] MEDICINE [address] [place] [address] Lin Lopez MD [address] [place] [address] 12/12/2025 1:00 PM EST Office Visit [facility] OPT[facility] [address] [place] [phone] Anahi Yarbrough, OD [address] [place] [address] documented as of this encounter Visit Diagnoses Not on filedocumented in this encounter Care Teams Personnel Records Clerk Relationship Specialty Start Date End Date Stacy Dugan FNP PCP - General Family Medicine 06/10/22 07/21/23 Amy You NP 230 [place] [address] PCP - General Family Medicine 07/22/23 10/31/23 Lin Lopez MD [address] [place] [address] PCP - General Internal Medicine 11/01/23 documented as of this encounter
[2025-09-06 11:32] LABS: MANUAL DIFF FLAG NO
[2025-09-06 11:43] LABS: Hematocrit 44.0 % (42.0-52.0); Hemoglobin 14.8 g/dl (14.0-18.0); Imm Gran Abs Auto 0.01 X10*3/uL (0.00-0.03); Imm Gran Pct Auto 0.2 % (0.0-0.4); Lymphocytes Absolute Auto 1.7 X10*3/uL (1.2-4.9); Mean Corpuscular HGB Conc 33.6 g/dl (31.0-36.0); Mean Corpuscular Hemoglobin 31.6 pg (27.0-33.0); Mean Corpuscular Volume 93.8 fL (80.0-98.0); NRBC Abs Auto 0.000 X10*3/uL (0.0-0.012); NRBC Pct Auto 0.0 /100WBC (0.0-0.2); Platelet Count 163 X10*3/uL (160-400); Red Blood Count 4.69 X10*6/uL (4.60-5.80); White Blood Count 4.6 X10*3/uL (4.8-10.8)
[2025-09-06 12:28] LABS: Prostate Specific Antigen 5.49 ng/mL (<0.05-4.0)
[2025-09-06 12:30] LABS: HBS Num1 6.01 mIU/mL (0-7.99); HBc Num1 0.52 S/CO (0.00-0.79); HBsAGNum1 0.33 S/CO (0.00-0.99); HIV Num 1 0.07 S/CO (0.00-0.99); Hepatitis B Surface Antigen Negative (Negative); ~HepC Num1 0.11 S/CO (0.00-0.79); ~Hepatitis B Surface Antibody NONREACTIVE (Nonreactive); ~Hepatitis C Antibody Nonreactive (Nonreactive)
[2025-09-06 12:36] LABS: Syphilis Screen Nonreactive (Nonreactive)
[2025-09-06 12:48] LABS: Microalbum/Creatinine Ratio Ur 6.1 ug/mg cr (<30)
[2025-09-06 13:15] LABS: CT PCR Urine NOT DETECTED (Not Detect.); NG PCR Urine NOT DETECTED (Not Detect.)
[2025-09-06 13:21] LABS: Alanine Aminotransferase 13 U/L (0-40); Albumin Level 4.4 g/dL (3.5-5.0); Alkaline Phosphatase 56 U/L (39-117); Anion Gap 11 (12-20); Aspartate Amino Transferase 26 U/L (5-37); Blood Urea Nitrogen 16 mg/dL (9-16); Calcium 9.4 mg/dL (8.4-10.2); Carbon Dioxide 27 mmol/L (22-29); Chloride 108 mmol/L (96-108); Cholesterol 193 mg/dL (<200); Estimated Glomerular Filt Rate > 60; HDL Cholesterol 54 mg/dL (>40); Potassium 4.0 mmol/L (3.3-5.1); Sodium 142 mmol/L (135-145); Total Protein 7.0 g/dL (6.5-8.0); Triglycerides 100 mg/dL (<150)
== END 2025-09-06 09:37 | disposition home or self-care (01) ==
LOC: HO.HHCL 09:36
PROVIDERS: PCP Student in an Organized Health Care Education/Training Program; Visit Provider Student in an Organized Health Care Education/Training Program
DX: Z00.00 Encounter for general adult medical examination without abnormal findings (principal); Z13.6 Encounter for screening for cardiovascular disorders; Z11.4 Encounter for screening for human immunodeficiency virus [HIV]; Z13.1 Encounter for screening for diabetes mellitus; Z13.29 Encounter for screening for other suspected endocrine disorder; Z12.5 Encounter for screening for malignant neoplasm of prostate; A64 Unspecified sexually transmitted disease; Z68.39 Body mass index [BMI] 39.0-39.9, adult
CPT/HCPCS: 80053; 80061; 82043; 82306; 82570; 83036; 84153; 84443; 85025; 86704; 86706; 86780; 86803; 87340; 87389; 87491; 87591